=== PATIENT | female | born 1955 | race Caucasian/White ===

== ENCOUNTER 2016-08-01 11:52 | Outpatient (CLI) | payer MEDICARE, OTHER ==
[~2016-08-01] VITALS: Ht 177.8 cm; Wt 149.2 kg
[2016-08-01 12:06] VITALS: BP 140/69
[2016-08-01] MEDS ORDERED: WARF4TAB9 PO (12:17)
[2016-08-01] MEDS ORDERED: ACEB200C PO (12:55)
[2016-08-01 13:11] LABS: BASOPHILS % (AUTO) 0 % (0-10); EOSINOPHILS # (AUTO) 0.4 10^3/uL (0.0-0.3); EOSINOPHILS % (AUTO) 4 % (0-10); LYMPHOCYTES # (AUTO) 1.9 X 10^3 (1.0-4.0); LYMPHOCYTES % (AUTO) 19 % (12-44); MEAN CORPUSCULAR HEMOGLOBIN 26 PG (25-34); MEAN CORPUSCULAR HGB CONC 33 G/DL (32-36); MEAN CORPUSCULAR VOLUME 81 FL (80-99); MEAN PLATELET VOLUME 10.7 FL (7.4-10.4); MONOCYTES # (AUTO) 0.8 X 10^3 (0.0-1.0); MONOCYTES % (AUTO) 8 % (0-12); NEUTROPHILS # (AUTO) 7.2 X 10^3 (1.8-7.8); NEUTROPHILS % (AUTO) 70 % (42-75); PLATELET COUNT 225 10^3/uL (130-400); RED BLOOD COUNT 4.41 10^6/uL (4.35-5.85); RED CELL DISTRIBUTION WIDTH 14.8 % (10.0-14.5); WHITE BLOOD COUNT 10.3 10^3/uL (4.3-11.0)
[2016-08-01 13:28] LABS: ANION GAP 9 MMOL/L (5-14); BLOOD UREA NITROGEN 7 MG/DL (7-18); BUN/CREATININE RATIO 9; CALCIUM 9.4 MG/DL (8.5-10.1); CARBON DIOXIDE 28 MMOL/L (21-32); CHLORIDE 95 MMOL/L (98-107); CREATININE SERUM 0.78 MG/DL (0.60-1.30); GFR ESTIMATED > 60; GLUCOSE 121 MG/DL (70-105); POTASSIUM 4.4 MMOL/L (3.6-5.0); SODIUM 132 MMOL/L (135-145)
[2016-08-01] MEDS ORDERED: LORA-405 PO (13:34)
[2016-08-01] MEDS ORDERED: DILT360T11 PO (13:34)
[2016-08-01] MEDS ORDERED: DOXA4TAB2 PO (13:34)
[2016-08-01] MEDS ORDERED: DULO60CA58 PO (13:34)
[2016-08-01] MEDS ORDERED: TEMA30CA PO (13:34)
[2016-08-01] MEDS ORDERED: CLON0.3T PO (13:34)
[2016-08-01] MEDS ORDERED: HYDR-3820 PO (13:53)
[2016-08-01] MEDS ORDERED: LEVO75TA6 PO (13:53)
[2016-08-01] MEDS ORDERED: BUDE10.2 IH (13:53)
[2016-08-01] MEDS ORDERED: MONT10TA24 PO (13:53)
[2016-08-01] MEDS ORDERED: CARI350T PO (13:53)
[2016-08-01] MEDS ORDERED: ISOS30TA3 PO (13:53)
[2016-08-01] MEDS ORDERED: RT-ALBUINH IH (13:53)
[2016-08-01] MEDS ORDERED: FURO40TA4 PO (13:53)
[2016-08-01] MEDS ORDERED: POTA10TA10 PO (13:53)
[2016-08-01] MEDS ORDERED: FEXO180T84 PO (13:53)
[2016-08-01] MEDS ORDERED: PANT40TA2 PO (13:53)
[2016-08-01] MEDS ORDERED: LOSA25TA21 PO (13:53)
[2016-08-01] MEDS ORDERED: FLUT9.9S NSEACH (13:53)
[2016-08-01] MEDS ORDERED: GABA-490 PO (13:53)
[2016-08-01] MEDS ORDERED: INSU100V6 SQ (13:53)
[2016-08-01] MEDS ORDERED: ACLI400A2 IH (13:53)
[2016-08-01] MEDS ORDERED: INSU100V16 SQ (13:53)
[2016-08-01] MEDS ORDERED: METO-310 PO (13:53)
[2016-08-01] MEDS ORDERED: ATOR20TA66 PO (13:53)
[2016-08-01] MEDS ORDERED: GLIM4TAB PO (13:53)
== END 2016-08-01 12:30 | disposition home or self-care (01) ==
LOC: PREOP 11:52
PROVIDERS: ATTEND Orthopaedic Surgery Orthopaedic Surgery of the Spine
DX: Z01.812 Encounter for preprocedural laboratory examination (principal); Z11.2 Encounter for screening for other bacterial diseases; M50.20 Other cervical disc displacement, unspecified cervical region; I10 Essential (primary) hypertension
CPT/HCPCS: 36415; 80048; 85025; 87081

== ENCOUNTER 2016-08-07 10:21 | Inpatient (IN) | payer MEDICARE, OTHER ==
[~2016-08-07] VITALS: Ht 177.8 cm; Wt 149.2 kg
[~2016-08-07 10:21] MED LIST: ACEB200C PO; ACLI400A2 IH; ATOR20TA66 PO; BUDE10.2 IH; CARI350T PO; CLON0.3T PO; DILT360T11 PO; DOXA4TAB2 PO; DULO60CA58 PO; FEXO180T84 PO; FLUT9.9S NS; FURO40TA4 PO; GABA-490 PO; GLIM4TAB PO; HYDR-3820 PO; INSU100V16 SQ; INSU100V6 SQ; ISOS30TA3 PO; LEVO75TA6 PO; LORA-405 PO; LOSA25TA21 PO; METO-310 PO; MONT10TA24 PO; PANT40TA2 PO; POTA10TA10 PO; RT-ALBUINH IH; TEMA30CA PO; WARF4TAB9 PO
[2016-08-07] MEDS ORDERED: GENTAMICIN 40 MG/ML 2 ML INJ SDV ONE (10:40)
[2016-08-07] MEDS ORDERED: fentaNYL INJECTION 250 MCG/5 ML AMP ONE (10:44)
[2016-08-07] MEDS ORDERED: MIDAZOLAM 2 MG/2 ML (VERSED) VIAL ONE (10:44)
[2016-08-07] MEDS ORDERED: NS (IVPB) 50 ML ONE (10:44)
[2016-08-07] MEDS ORDERED: CLINDAMYCIN 600 MG/4ML (CLEOCIN) VIAL ONE (10:44)
[2016-08-07] MEDS ORDERED: MILK OF MAGNESIA 400 MG/5 ML 30 ML UDC PO PRN (10:45)
[2016-08-07] MEDS ORDERED: FAMOTIDINE 20MG/2ML IV (PEPCID) IV ONE (10:45)
[2016-08-07] MEDS ORDERED: ONDANSETRON 4 MG/2 ML (SDV) Z0FRAN IV PRN (10:45)
[2016-08-07] MEDS ORDERED: ACETAMINOPHEN 325 MG TABLET/CAPLET (TYLENOL) PO PRN (10:45)
[2016-08-07] MEDS ORDERED: DOCUSATE SODIUM 100 MG (COLACE) CAP PO PRN (10:45)
[2016-08-07] MEDS: LACTATED RINGERS 1,000 ML IV PRN ×2 (10:45→12:03)
[2016-08-07] MEDS ORDERED: ONDANSETRON 4 MG/2 ML (SDV) Z0FRAN IV ONE (10:45)
[2016-08-07] MEDS ORDERED: SUCCINYLCHOLINE INJ 100 MG/5 ML SYR ONE (10:49)
[2016-08-07 11:07] LABS: INR 1.2 (0.8-1.4); PROTHROMBIN TIME PATIENT 14.6 SEC (12.2-14.7)
[2016-08-07] MEDS ORDERED: CLINDAMYCIN INJECTION 600 MG in NS (IVPB) 50 ML IV ONE (11:15)
[2016-08-07] MEDS ORDERED: SEVOFLURANE (ULTANE) 15 ML INHAL SOLN ONE (12:31)
[2016-08-07] MEDS ORDERED: ROCURONIUM 50 MG/5 ML (ZEMURON) VIAL IV ONE (12:31)
[2016-08-07] MEDS ORDERED: DEXMEDETOMIDINE 200 MCG/2 ML (PRECEDEX) VIAL IV ONE (12:31)
[2016-08-07] MEDS ORDERED: proPOfol 200 MG/20 ML (DIPRIVAN) VIAL IV ONE ×2 (12:31→12:32)
[2016-08-07] MEDS ORDERED: LACTATED RINGERS 1,000 ML IV ONE ×2 (12:31→12:32)
[2016-08-07] MEDS ORDERED: ONDANSETRON 4 MG/2 ML (SDV) Z0FRAN ONE (12:31)
[2016-08-07] MEDS ORDERED: LIDOCAINE PF 2% 5 ML (XYLOCAINE) VIAL ONE (12:31)
--- NOTE | 2016-08-07 12:44 | Progress Note-Post Operative ---
Post-Operative Progess Note Surgeon (s)/Chainman (s) Surgeon TARYN PEGUERO MD Chainman: CHANTEL Arzola Pre-Operative Diagnosis Cervical Stenosis Post-Operative Diagnosis Same Procedure & Operative Findings Date of Procedure 08/07/16 Procedure Performed/Findings C4-7 ACDF with allo and plate. Anesthesia Type GETA Estimated Blood Loss Estimated blood loss (mL): <50 Specimens/Packing Specimens Removed None TARYN PEGUERO MD Aug 07, 2016 12:44 pm
[2016-08-07] MEDS ORDERED: morphine INJ 10 MG/ML 1ML (SYR OR VIAL) ONE (13:05)
[2016-08-07] MEDS: morphine INJ 10 MG/ML 1ML (SYR OR VIAL) IVP PRN ×6 (13:10→21:39)
[2016-08-07] MEDS ORDERED: ONDANSETRON 4 MG/2 ML (SDV) Z0FRAN IVP PRN (13:15)
[2016-08-07] MEDS ORDERED: HYDROmorphone (DILAUDID) 2 MG/ML VIAL IVP PRN (13:15)
--- NOTE | 2016-08-07 13:28 | Diagnostic Imaging Report ---
INDICATION: Neck pain. IMPRESSION: 8.5 seconds of fluoroscopy was used by Dr. Sellers during anterior cervical discectomy and fusion at C4-5, C5-6, and C6-7. The postop alignment appears normal. Dictated by: Dictated on workstation # [id number]
[2016-08-07 13:50] VITALS: BP 149/77
[2016-08-07] MEDS: NS IV 1000 ML 1,000 ML IV SCH ×2 (14:40→18:27)
[2016-08-07] MEDS ORDERED: CATHETER FLUSH 10 ML SYR IV PRN (14:45)
[2016-08-07] MEDS ORDERED: TEMA15CA PO (15:30)
[2016-08-07] MEDS ORDERED: INSU100I10 SC (15:30)
[2016-08-07] MEDS ORDERED: INSU100I14 SC (15:30)
[2016-08-07] MEDS ORDERED: DILT300C PO (15:30)
[2016-08-07] MEDS ORDERED: MULT-878 PO (15:32)
[2016-08-07 16:45] VITALS: BP 183/97
[2016-08-07] MEDS: BACLOFEN 10 MG (LIORESAL) TAB PO PRN (16:59)
[2016-08-07] MEDS: HYDROcodone/APAP 5 MG/325 MG (LORTAB) TAB PO PRN (18:11)
[2016-08-07] MEDS: CLINDAMYCIN INJECTION 600 MG in NS (IVPB) 50 ML IV SCH (18:53)
[2016-08-07 19:15] VITALS: BP 191/96
[2016-08-07] MEDS ORDERED: TEMAZEPAM 15 MG (RESTORIL) CAP PO PRN (20:30)
[2016-08-07] MEDS ORDERED: NON-FORMULARY MEDICATION 1 EA EA (Temazepam 30 MG) PO PRN (20:30)
[2016-08-07] MEDS: cloNIDine 0.1 MG (CATAPRES) TAB PO SCH (20:45)
[2016-08-07] MEDS: ISOSORBIDE MONONITRATE 30 MG (IMDUR) TAB PO SCH (20:46)
[2016-08-07] MEDS: DILTIAZEM 300 MG (CARDIZEM CD) CAP PO SCH (20:46)
[2016-08-07] MEDS: LOSARTAN 25 MG (COZAAR) TAB PO SCH (20:46)
[2016-08-07] MEDS ORDERED: DULoxetine 30 MG (CYMBALTA) CAP ONE (20:47)
[2016-08-07] MEDS ORDERED: NON-FORMULARY MEDICATION 1 EA EA (Insulin Glargine,Hum.rec.anlog (Lantus Solostar) 50 UNIT SC SCH (21:00)
[2016-08-07] MEDS ORDERED: NON-FORMULARY MEDICATION 1 EA EA (Insulin Aspart (Novolog Flexpen) 20 UNITS) SC SCH (21:00)
[2016-08-07] MEDS ORDERED: CLONIDINE HCL 0.3 MG PO SCH (21:00)
[2016-08-07] MEDS ORDERED: ACEBUTOLOL HCL 200 MG PO SCH (21:00)
[2016-08-07] MEDS ORDERED: NON-FORMULARY MEDICATION 1 EA EA (Duloxetine HCl 60 MG) PO SCH (21:00)
[2016-08-07] MEDS: inSUlin DETERMIR 1 UNIT/0.01 ML (LEVEMIR) CHARGE PER UNIT SQ SCH (21:38)
[2016-08-07] MEDS: inSUlin ASPART (NovoLOG) 1 UNIT/0.01 ML (CHARGE PER UNIT) SC SCH (21:39)
[2016-08-07 23:50] VITALS: BP 165/75
[2016-08-08] MEDS: HYDROcodone/APAP 5 MG/325 MG (LORTAB) TAB PO PRN ×3 (00:10→10:05)
[2016-08-08] MEDS: CLINDAMYCIN INJECTION 600 MG in NS (IVPB) 50 ML IV SCH ×2 (02:11→10:13)
[2016-08-08 03:45] VITALS: BP 174/80
[2016-08-08] MEDS: NS IV 1000 ML 1,000 ML IV SCH ×2 (04:08→13:04)
--- NOTE | 2016-08-08 05:13 | OPERATIVE REPORT ---
DATE OF SERVICE: 08/07/2016 PREOPERATIVE DIAGNOSES: 1. Cervical stenosis. 2. Cervical spondylosis. 3. Cervical radiculopathy. POSTOPERATIVE DIAGNOSES: 1. Cervical stenosis. 2. Cervical spondylosis. 3. Cervical radiculopathy. PROCEDURE PERFORMED: 1. C4-C5 anterior cervical discectomy and fusion. 2. C5-C6 anterior cervical discectomy and fusion. 3. C6-C7 anterior cervical discectomy and fusion. 4. C4-C5, C5-C6, and C6-C7 interbody cage instrumentation. 5. C4-C7 anterior plate instrumentation. DATE AND TIME OF SURGERY: Please see anesthesia records. IMPLANTS USED: K2M [place] interbody cages. K2M blue ridge plate and screws. K2M [place] bone graft. SURGEON: Taryn Sellers MD HAND RIGGER: JAYNE Bee. ROLE OF PHYSICIAN/ALLERGY/IMMUNOLOGY: Aid in retraction of the procedure, aid in implantation, instrumentation and wound closure. ANESTHESIA: General endotracheal. ESTIMATED BLOOD LOSS: Less than 50 mL. INTRAVENOUS FLUIDS: Please see anesthesia record. ANTIBIOTICS: Ancef. COMPLICATIONS: None. INDICATIONS FOR PROCEDURES: The patient is a 61-year-old female patient with progression to her neck pain, arm pain, weakness, failed conservative therapy and desires operative treatment. NEUROMONITORING: Standard intraoperative neuromonitoring carried out by means of real time of continuous high quality bidirectional mode, audio and visual communication to both the robotics testing technician and surgeon by Dr. Jasso SSEPS, EMGs, TCMEPs and TOFs were carried out continuously throughout the procedure and stable. DESCRIPTION OF THE PROCEDURE: The patient was taken from the preoperative holding area back to the operative suite. After adequate induction of general anesthesia, preoperative antibiotics, placed supine on the OR table. Shoulder roll was placed, head extended, sterile prep and drape to the anterior cervical spine. A standard left-sided [place] approach to the neck was carried out without difficulty. Once the appropriate levels were confirmed, Shadow-Line retractor was placed deep to longus colli for the remainder of the case. Then starting at 4-5, [place] pins placed, anterior dissection performed, disk decompression all the way down to the posterior longitudinal ligament was carried out. Bilateral foraminal decompression was assured and at this point trial spacer was utilized and the appropriate sized [place], titanium interbody cage filled with Allograft bone was impacted into position with good fit achieved. Procedure was then carried out the 5-6, and 6-7 levels. Once all 3 levels have been adequately decompressed and infused, [place] pins were removed. The anterior osteophytes taken down and the appropriate sized [place] plate was affixed to the spine with a combination of 14 to 16 mm variable angle screws locked to plate. Wound was copiously irrigated. Deep drain was placed. The wound was closed in layers. The patient was transferred to the recovery room in stable condition having tolerated the procedure well. Job ID: [id number] DocumentID: [id number] Dictated Date: 08/07/2016 12:47:44 Reel Stripper Date: 08/08/2016 01:48:41 Dictated By: TARYN SELLERS MD MTDD
--- NOTE | 2016-08-08 06:07 | Progress Note (SOAP) ---
Subjective Time Seen by Provider: 06:05 Subjective/Events-last exam Arm pain and numbness gone Some neck pain Swallowing pain Objective Exam Vital Signs Date Time Temp Pulse Resp B/P (MAP) Pulse Ox O2 Delivery O2 Flow Rate FiO2 08/08/16 03:45 98.1 94 16 174/80 91 08/07/16 23:50 96.4 97 22 165/75 91 08/07/16 19:15 99.4 94 19 191/96 92 08/07/16 16:45 97.6 83 19 183/97 92 08/07/16 13:50 96.8 61 16 149/77 91 I & O 08/08/16 07:00 Intake Total 3409 ml Output Total 3800 ml Balance -391 ml Capillary Refill : General Appearance: No Apparent Distress Neck: Non Tender, Supple Respiratory: No Accessory Muscle Use, No Respiratory Distress Cardiovascular: Regular Rate, Rhythm Extremity: Non Tender, No Calf Tenderness Neurologic/Psychiatric: Alert, Oriented x3, No Motor/Sensory Deficits, Normal Mood/Affect Results Lab Laboratory Tests 08/07/16 10:40: Prothrombin Time 14.6, INR Comment 1.2, Activated Partial Thromboplast Time 28 08/07/16 10:42: Glucometer 165H 08/07/16 13:07: Glucometer 199H 08/07/16 20:57: Glucometer 407*H 08/08/16 05:37: Glucometer 283H Assessment/Plan Assessment/Plan Assess & Plan/Chief Complaint Cervical Stenosis Cervical Spondylosis Cervical Radiculopathy Diabetes Morbid Obesity BMI>45 Mobilize today Pain control Work on Blood Sugars Likely home tomorrow Clinical Quality Measures DVT/VTE Risk/Contraindication: Risk Factor Score Per Nursin RFS Level Per Nursing on Admit: 4+=Very High TARYN PEGUERO MD Aug 08, 2016 6:07 am
[2016-08-08] MEDS: MULTIVIT W/MINERALS TAB (THERAGRAN M) PO SCH ×2 (06:36→06:37)
[2016-08-08] MEDS: inSUlin ASPART (NovoLOG) 1 UNIT/0.01 ML (CHARGE PER UNIT) SC SCH ×4 (06:36→22:31)
[2016-08-08] MEDS ORDERED: PANTOPRAZOLE 40 MG (PROTONIX) TAB PO SCH ×2 (07:00→21:00)
[2016-08-08] MEDS: morphine INJ 10 MG/ML 1ML (SYR OR VIAL) IVP PRN ×5 (07:48→22:33)
[2016-08-08] MEDS: cloNIDine 0.1 MG (CATAPRES) TAB PO SCH ×3 (07:49→22:33)
[2016-08-08] MEDS: DULoxetine 30 MG (CYMBALTA) CAP PO SCH ×2 (07:49→22:34)
[2016-08-08] MEDS: inSUlin DETERMIR 1 UNIT/0.01 ML (LEVEMIR) CHARGE PER UNIT SQ SCH ×2 (07:52→22:31)
[2016-08-08 08:00] VITALS: BP 186/100
--- NOTE | 2016-08-08 09:20 | Physical Therapy Evaluation ---
PT Evaluation-General Medical Diagnosis Admission Date Aug 07, 2016 at 10:21 Medical Diagnosis: herniated nucleus propulposus Onset Date: Aug 07, 2016 Therapy Diagnosis Therapy Diagnosis: debility/weakness Height/Weight Height (Feet): 5 Height (Inches): 10.00 Weight (Pounds): 329 Weight (Ounces): 0.0 Precautions Precautions/Isolations: Fall Prevention, Standard Precautions Referral Physician: Verito Medical History Pertinent Medical History: DM Additional Medical History left AKA (2 yrs); morbid obesity; cervical stenosis Current History s/p C4-7 ACDF with allograft and plate Reviewed History: Yes Social History Home: Single Level Current Living Status: Spouse Entry Into Home: Ramp Prior/Core FIM Prior Level of Function Functional [place] Measure 0=Not Assessed/NA 4=Minimal Assistance 1=Total Assistance 5=Supervision or Setup 2=Maximal Assistance 6=Modified [place] 3=Moderate Assistance 7=Complete [place] Bed Mobility: 6 Transfers (B,C,W/C) (FIM): 6 Gait: 0 Locomotion: 6 Wheelchair Mobility: 6 patient is nonambulatory x 2 yrs. PT Evaluation-Current Subjective Patient agrees to PT. Pain Numeric Pain Scale: 5-Moderate Pain Location: Soft Tissue Location Body Site: Neck Pain Description: Ache, Acute Pt/Family Goals return to home this week Objective Patient Orientation: Normal For Age Problem Solving: Good Attachments: Ayala Catheter, IV cervical collar ROM/Strength ROM Lower Extremities right LE WFL Strenght Lower Extremities right LE 5/5 in all planes; left AKA WFL Integumentary/Posture Integumentary refer to nursing notes Bladder Incontinence: Ayala Cath Posture WNL Neuromuscular (Tone, Coordination, Reflexes) grossly intact Sensory Vision: Functional Hearing: Functional Sensation Right Lower Extremit: Impaired Sensation Left Lower Extremity: Impaired Transfers Functional [place] Measure 0=Not Assessed/NA 4=Minimal Assistance 1=Total Assistance 5=Supervision or Setup 2=Maximal Assistance 6=Modified [place] 3=Moderate Assistance 7=Complete [place] Transfers (B, C, W/C) (FIM): 5 Scootin Rollin Supine to/from Sit: 6 Sit to/from Stand: 5 Gait Mode of Locomotion: Wheelchair Anticipated Mode of Locomotion: Wheelchair Balance Sitting Static: Normal Sitting Dynamic: Normal Standing Static: Normal Standing Dynamic: Fair Assessment/Needs 61 y.o. female, will benefit from short term skilled PT to address functional mobility to return to home with spouse. Patient has been nonambulatory x 2 yrs secondary to left AKA and has all modified equipment established. Rehab Potential: Good PT Short Term Goals Short Term Goals Time Frame: Aug 11, 2016 Transfers (B,C,W/C) (FIM): 6 PT Plan Treatment/Plan Treatment Plan: Continue Plan of Care Treatment Plan: Education, Functional Activity [place], Functional Strength, Safety, Therapeutic Exercise, Transfers Treatment Duration: Aug 11, 2016 # of days/week 4 Visits Per Week: 4-8 Pt/Family Agrees w/Plan: Yes Safety Risks/Education Patient Education: Safety Issues Teaching Recipient: Patient Teaching Methods: Discussion Response to Teaching: Verbalize Understanding Discharge Recommendations Therapy D/C Recommendations: Home w/ Family Support, Physical Therapy Outpatient Time/GCodes Time In: 840 Time Out: 900 Total Billed Treatment Time: 20 Total Billed Treatment 1 visit EVModC 20 min JOHN NAPOLES PT Aug 08, 2016 09:20
[2016-08-08 09:46] LABS: BASOPHILS % (AUTO) 0 % (0-10); EOSINOPHILS % (AUTO) 0 % (0-10); LYMPHOCYTES # (AUTO) 0.7 X 10^3 (1.0-4.0); LYMPHOCYTES % (AUTO) 6 % (12-44); MEAN CORPUSCULAR HEMOGLOBIN 26 PG (25-34); MEAN CORPUSCULAR HGB CONC 32 G/DL (32-36); MEAN CORPUSCULAR VOLUME 82 FL (80-99); MEAN PLATELET VOLUME 10.6 FL (7.4-10.4); MONOCYTES # (AUTO) 0.7 X 10^3 (0.0-1.0); MONOCYTES % (AUTO) 5 % (0-12); NEUTROPHILS # (AUTO) 11.5 X 10^3 (1.8-7.8); NEUTROPHILS % (AUTO) 89 % (42-75); PLATELET COUNT 178 10^3/uL (130-400); RED BLOOD COUNT 4.39 10^6/uL (4.35-5.85); RED CELL DISTRIBUTION WIDTH 14.9 % (10.0-14.5); WHITE BLOOD COUNT 12.9 10^3/uL (4.3-11.0)
[2016-08-08 10:04] LABS: ALANINE AMINOTRANSFERASE 10 U/L (0-55); ALBUMIN 3.8 G/DL (3.2-4.5); ANION GAP 11 MMOL/L (5-14); ASPARTATE AMINO TRANSFERASE 8 U/L (5-34); BILIRUBIN,TOTAL 0.5 MG/DL (0.1-1.0); BLOOD UREA NITROGEN 10 MG/DL (7-18); BUN/CREATININE RATIO 12; CARBON DIOXIDE 25 MMOL/L (21-32); CHLORIDE 99 MMOL/L (98-107); CREATININE SERUM 0.85 MG/DL (0.60-1.30); GFR ESTIMATED > 60; GLUCOSE 312 MG/DL (70-105); SODIUM 135 MMOL/L (135-145); TOTAL PROTEIN 6.3 G/DL (6.4-8.2)
--- NOTE | 2016-08-08 10:11 | Consultation-Hospitalist ---
HPI History of Present Illness: HPI/Chief Complaint CC: Medical management C4-7 ACDF with allo and plate POD # 1 HPI: This is a 61-year-old white female from [place] that presents following an uncomplicated cervical spine surgery per Dr. Sellers. Currently she is concerned about her home medication which I reconciled and reviewed and restarted promptly. She reports the pain medication is helping when she receives it and overall not having any shortness of breath or chest pain. She sees multiple specialists in [place] including cardiology, pulmonology, and multiple others due to multiple medical problems including lupus anticoagulant with history of blood clots in the left [id number] amputation performed [address] Worrell. At this current time I'm waiting on lab results that I ordered but her blood sugar has been in the 300 range so I restarted her home insulin regimen. At this current time I will be monitoring closely treating pain with initiating physical therapy as soon as possible to get out of bed at least but ambulation is precluded due to left [id number] amputation. Exam Limitations: no limitations Date Seen 08/08/16 Attending Physician Ger Sellers MD PCP No,Local Physician Referring Physician Date of Admission Aug 07, 2016 at 10:21 Home Medications & Allergies Home Medications Reviewed patient Home Medication Reconciliation Form Allergies Allergies Coded Allergies Penicillins (Verified Allergy, Severe, ANAPHYLAXIS, 08/07/16) adhesive tape (Verified Allergy, Unknown, HIVES, 08/01/16) Past Ujfgsyk-Nblljc-Vbwdef Hx Patient Social History Marrital Status: Employed/Student: unemployed Alcohol Use: Denies Use Recreational Drug Use: No Smoking Status: Former Smoker Physical Abuse Screen: No Sexual Abuse: No Recent Foreign Travel: No Contact w/other who traveled: No Recent Hopitalizations: No Recent Infectious Disease Expo: No Immunizations Up To Date Date of Pneumonia Vaccine: August 01, 2014 Seasonal Allergies Seasonal Allergies: Yes Surgeries HX Surgeries: Yes Surgeries: Orthopedic Respiratory Hx Respiratory Disorders: Yes Respiratory Disorders: COPD Cardiovascular Hx Cardiovascular Disorders: Yes Cardiac Disorders: Chronic Edema/Swelling, High Cholesterol, Hypertension, Peripheral Vascular Neurological Hx Neurological Disorders: Yes Neurological Disorders: Neuropathy Genitourinary Hx Genitourinary Disorders: Yes Genitourinary Disorders: Bladder Infection, Renal Failure Gastrointestinal Hx Gastrointestinal Disorders: Yes Gastrointestinal Disorders: Gastroesophageal Reflux Musculoskeletal Hx Musculoskeletal Disorders: Yes (lupus) Musculoskeletal Disorders: Arthritis, Chronic Back Pain Endocrine Hx Endocrine Disorders: Yes Endocrine Disorders: Diabetes, Insulin dep HEENT HX ENT Disorders: Yes HEENT Disorders: Cataract Hearing Impairment: Denies Cancer Hx Cancer: No Psychosocial Hx Psychiatric Problems: Yes Behavioral Health Disorders: Anxiety, Depression Family Medical History Family Hx: Abdominal aortic aneurysm 19 MOTHER Alcoholism 19 FATHER Arthritis G8 SISTER Asthma 19 FATHER Dementia 19 MOTHER Diabetes mellitus 19 FATHER Hypercholesterolemia G8 SISTER Hypertension 19 FATHER Review of Systems Date Seen by Provider: Aug 08, 2016 Time Seen by Provider: 10:00 Constitutional: see HPI EENTM: no symptoms reported Respiratory: no symptoms reported Cardiovascular: no symptoms reported Gastrointestinal: no symptoms reported Genitourinary: no symptoms reported Musculoskeletal: back pain, neck pain Skin: no symptoms reported Psychiatric/Neurological: Depressed All Other Systems Reviewed Negative Unless Noted: Yes Physical Exam Physical Exam Vital Signs Vital Sign - Last 12Hours 08/07/16 13:50 Temp 96.8 Pulse 61 Resp 16 B/P (MAP) 149/77 Pulse Ox 91 Capillary Refill : General Appearance: No Apparent Distress, WD/WN, Chronically ill, Obese Eyes: Bilateral Eye Normal Inspection, Bilateral Eye PERRL HEENT: PERRL/EOMI, Normal ENT Inspection, Pharynx Normal Neck: Full Range of Motion, Normal Inspection, Non Tender, Supple, Carotid Bruit Respiratory: Chest Non Tender, Lungs Clear, No Accessory Muscle Use, No Respiratory Distress, Decreased Breath Sounds Cardiovascular: Regular Rate, Rhythm, No Edema, No Gallop, No JVD, No Murmur, Normal Peripheral Pulses Gastrointestinal: Normal Bowel Sounds, No Organomegaly, No Pulsatile Mass, Non Tender, Soft Back: Decreased Range of Motion, Vertebral Tenderness Extremity: Normal Capillary Refill, Normal Inspection, Normal Range of Motion, Non Tender, No Calf Tenderness, No Pedal Edema Neurologic/Psychiatric: Alert, Oriented x3, No Motor/Sensory Deficits, Normal Mood/Affect Skin: Normal Color, Warm/Dry Lymphatic: No Adenopathy Results Results/Procedures Lab Laboratory Tests 08/08/16 09:39 Assessment/Plan Admission Diagnosis Assessment: Status post cervical spine surgery uncomplicated POD # 1 History of COPD Lupus anticoagulant with history of DVTs in the past maintained on warfarin Diabetes mellitus out of control Peripheral vascular disease Left pcjhq-xjp-dalu amputation [address] Worrell Hypertension Hyperlipidemia Assessment and Plan Plan: Monitor pain Reconcile all home meds Restart insulin regimen Monitor O2 saturations DVT prophylaxis per orthopedic surgery but high risk for hematoma if anticoagulation initiated to early Monitor closely Clinical Quality Measures DVT/VTE Risk/Contraindication: Risk Factor Score Per Nursin RFS Level Per Nursing on Admit: 4+=Very High LAVELL PINTO DO Aug 08, 2016 10:11
[2016-08-08 10:13] LABS: BAND NEUTROPHILS 1 %; BASOPHILS % (MANUAL) 0 %; EOSINOPHILS % (MANUAL) 0 %; LYMPHOCYTES % (MANUAL) 7 %; NEUTROPHILS % (MANUAL) 86 %
[2016-08-08 10:14] LABS: ANISOCYTOSIS SLIGHT
[2016-08-08] MEDS ORDERED: PATIENT MAY USE OWN MED,SINGLE MED PO SCH (10:15)
[2016-08-08] MEDS ORDERED: amLODIPine 5 MG (NORVASC) TAB PO NR (10:33)
--- NOTE | 2016-08-08 10:40 | Occupational Therapy Eval ---
OT Evaluation-General/PLF Medical Diagnosis Admission Date Aug 07, 2016 at 10:21 Medical Diagnosis: herniated nucleus propulposus Onset Date: Aug 07, 2016 Therapy Diagnosis Therapy Diagnosis: decreased self care Height/Weight Height (Feet): 5 Height (Inches): 10.00 Weight (Pounds): 329 Weight (Ounces): 0.0 Precautions Precautions/Isolations: Fall Prevention, Standard Precautions Referral Physician: Verito Referral Reason: Evaluation/Treatment Medical History Pertinent Medical History: DM Additional Medical History Morbid obesity, L AKA 2 years ago. Has been non-ambulatory for two years. Current History Cervical stenosis, cervical spondylosis, cervical radiculopathy. C4-C7 ADCF on Reviewed History: Yes Social History Home: Single Level Current Living Status: Spouse Entry Into Home: Ramp ADL-Prior Level of Function ADL PLOF Comments Pt reported she has been able to manage all of her basic ADLs prior to surgery. She dresses in bed but said she is able to stand with FWW to pull pants up and down. She uses a BSC because she is not able to access her toilet from the w/c at this time. Has a transfer tub bench and grab bars and is able to bathe herself. She does not drive. She is disabled. DME/Equipment: Bath Bench, Bedside Commode, Grab Bars, Tub/Shower Occupation: disabled Drive Self: No OT Current Status Subjective Pt seen in room, up in bed, agreeable to OT. Pt rated neck pain 8/10 but said she has had some meds recently for it. Did not describe Appearance Alert, cooperative Mental Status/Objective Attachments: Drains, [place] Catheter, Other-See Comments (cervical collar) Current Hand Dominance: Right Upper Extremity ROM Grossly WFL bilat Upper Extremity Strength Grossly WFL bilat Pt reported she has been going to therapy twice a week to increase her arm strength because she is planing on getting fitted for her LE prosthesis after her neck heals and she is preparing for walking. ADL-Treatment ADL-Current She was able to get out of bed with PT and walk a few steps. Still has ogden so hasn't been up to toilet. Functional [place] Measure 0=Not Assessed/NA 4=Minimal Assistance 1=Total Assistance 5=Supervision or Setup 2=Maximal Assistance 6=Modified [place] 3=Moderate Assistance 7=Complete IndependenceIRFPAI Quality Coding Scale 6 Independent with activity with or without an assistive device 5 Patient requires set up or clean up by helper. Patient completes activity by themselves 4 Supervision or touching assist (CGA). [place] provide cues , steadying assist 3 The helper provides less than half the effort to complete the activity 2 The helper provides more than half the effort to complete the activity 1 Dependent. The helper does all the effort to complete an activity 7 Patient refused to complete or attempt activity 9 The patient did not perform the activity before the current illness or injury 88 Not attempted due to Medical conditions or safety concerns Education OT Patient Education: Purpose of tx/functional activities, Rehab process Teaching Recipient: Patient Teaching Methods: Discussion Response to Teaching: Verbalize Understanding OT Short Term Goals Short Term Goals Transfers (B,C,W/C) (FIM): 6 OT Custodial Goals Doubler Operator Goals Time Frame: Aug 11, 2016 Grooming(FIM): 5 Bathing(FIM): 5 Upper Body Dressing(FIM): 5 Lower Body Dressing(FIM): 5 Toileting(FIM): 5 Toilet/Commode Transfer(FIM): 5 Additional Goals: 1-Demonstrate ADL Tasks, 2-Verbalize Understanding 1=Demonstrate adherence to instructed precautions during ADL tasks. 2=Patient will verbalize/demonstrate understanding of assistive devices/ modifications for ADL. 3=Patient will improve strength/tolerance for activity to enable patient to perform ADL's. OT Education/Plan Problem List/Assessment Assessment: Dependent Transfers (decreased), Impaired Self-Care Skills Pt would benefit from skilled OT to increase her independence in basic self care to allow her to safely return to her home to live with and to decrease caregiver burden Discharge Recommendations Plan/Recommendations: Continue POC Treatment Plan/Plan of Care Treatment,Training & Education: Yes Patient would benefit from OT for education, treatment and training to promote independence in ADL's, mobility, safety and/or upper extremity function for ADL' s. Plan of Care: ADL Retraining Comment Pt thinks she may be discharged to home tomorrow Treatment Duration: Aug 11, 2016 # of days/week 4 Visits Per Week: 4 Agreement: Yes Rehab Potential: Good Time/GCodes Start Time: 10:15 Stop Time: 10:30 Total Time Billed (hr/min): 15 Billed Treatment Time visit, 15 minutes evaluation low intensity VICENTA TRINH OT Aug 08, 2016 10:40
[2016-08-08] MEDS ORDERED: TEMAZEPAM 15 MG (RESTORIL) CAP PO PRN (11:00)
[2016-08-08] MEDS ORDERED: RT-ALBUTEROL SULF 2.5 MG/3 ML PRE-MIX VIAL IH PRN (11:00)
[2016-08-08] MEDS: LORazepam 1 MG (ATIVAN) TAB PO SCH ×2 (11:08→22:33)
[2016-08-08] MEDS: CARISOPRODOL 350 MG (SOMA) TAB PO SCH ×3 (11:09→22:34)
[2016-08-08] MEDS: METOCLOPRAMIDE 10 MG (REGLAN) TAB PO SCH ×3 (11:09→22:35)
[2016-08-08] MEDS: GABAPENTIN 400 MG (NEURONTIN) CAP PO SCH ×2 (11:09→22:34)
--- NOTE | 2016-08-08 11:13 | Anesthesia-General Post-Op ---
General Patient Condition Mental Status/LOC: Same as Preop Cardiovascular: Satisfactory Nausea/Vomiting: Absent Respiratory: Satisfactory Pain: Controlled Complications: Absent Post Op Complications Complications None Follow Up Care/Instructions Patient Instructions None needed. Anesthesia/Patient Condition Patient Condition Patient is doing well, no complaints, stable vital signs, no apparent adverse anesthesia problems. No complications reported per nursing. D/C home per [facility] Criteria: JOSH Velasquez DO Aug 08, 2016 11:13
[2016-08-08] MEDS: ACEBUTOLOL HCL 200 MG PO SCH ×2 (11:14→22:36)
[2016-08-08 12:00] VITALS: BP 139/75
[2016-08-08] MEDS ORDERED: doxAzosin 4 MG (CARDURA) TAB PO SCH (13:00)
--- NOTE | 2016-08-08 13:05 | Diagnostic Imaging Report ---
EXAMINATION: Two views of the cervical spine. INDICATION: Post fusion evaluation. FINDINGS: There is anterior discectomy and fusion involving C4-5, C5-6, and C6-7. Satisfactory alignment is seen. IMPRESSION: Baseline post anterior fusion of C4 through C7 in good alignment. Dictated by: Dictated on workstation # [id number]
[2016-08-08] MEDS: HYDROcodone/APAP 10 MG/325 MG (LORTAB) TAB PO PRN (15:59)
[2016-08-08 16:00] VITALS: BP 144/76
[2016-08-08 20:00] VITALS: BP 141/82
[2016-08-08] MEDS ORDERED: MONTELUKAST 10 MG (SINGULAIR) TAB PO SCH (21:00)
[2016-08-08] MEDS ORDERED: ATORVASTATIN 20 MG (LIPITOR) TABLET PO SCH (21:00)
[2016-08-08] MEDS: RT-ADVAIR HFA 115/21 MCG PER PUFF IH SCH (21:03)
[2016-08-08] MEDS: ISOSORBIDE MONONITRATE 30 MG (IMDUR) TAB PO SCH (22:33)
[2016-08-08] MEDS: LOSARTAN 25 MG (COZAAR) TAB PO SCH (22:33)
[2016-08-08] MEDS: DILTIAZEM 300 MG (CARDIZEM CD) CAP PO SCH (22:33)
[2016-08-08] MEDS: KCL 10 MEQ TAB (MICRO K) PO SCH (22:34)
[2016-08-08 23:50] VITALS: BP 129/72
[2016-08-09] MEDS: NS IV 1000 ML 1,000 ML IV SCH (00:32)
[2016-08-09] MEDS: morphine INJ 10 MG/ML 1ML (SYR OR VIAL) IVP PRN ×3 (00:32→06:03)
[2016-08-09 03:30] VITALS: BP 127/71
[2016-08-09] MEDS ORDERED: HYDR-3820 PO (05:16)
--- NOTE | 2016-08-09 05:22 | Discharge Summary ---
Diagnosis/Chief Complaint Date of Admission Aug 07, 2016 at 10:21 Date of Discharge Discharge Date: Aug 09, 2016 Admission Diagnosis Admission Diagnosis Cervical stenosis Cervical radiculopathy Chronic opioid use Discharge Diagnosis Cervical stenosis Cervical radiculopathy Chronic opioid use Morbid obesity Type 2 diabetes Hypothyroidism Reason Hospital Visit Cervical stenosis Discharge Summary Hospital Course Hospital Course Patient was brought to [facility] for scheduled surgical intervention. Patient underwent C4-7 ACDF, without complication. Her hospital course was uneventful. She progressed with PT and had good pain control at time of discharge. Labs Laboratory Tests 08/07/16 10:40: 08/07/16 10:42: Glucometer 165H 08/07/16 13:07: Glucometer 199H 08/07/16 20:57: Glucometer 407*H 08/08/16 05:37: Glucometer 283H 08/08/16 09:39: White Blood Count 12.9H, Red Cell Distribution Width 14.9H, Mean Platelet Volume 10.6H, Neutrophils (%) (Auto) 89H, Lymphocytes (%) (Auto) 6L, Neutrophils # (Auto) 11.5H, Lymphocytes # (Auto) 0.7L, Glucose Level 312H, Total Protein 6.3L 08/08/16 11:00: Glucometer 250H 08/08/16 15:37: Glucometer 168H 08/08/16 20:48: Glucometer 203H Procedures C4-[address] Jean-Baptiste Discharge Physical Examination Allergies: Coded Allergies: Penicillins (Verified Allergy, Severe, ANAPHYLAXIS, 08/07/16) adhesive tape (Verified Allergy, Unknown, HIVES, 08/01/16) Vitals & I&Os Vital Signs Date Time Temp Pulse Resp B/P (MAP) Pulse Ox O2 Delivery O2 Flow Rate FiO2 08/09/16 03:30 97.8 72 16 127/71 97 Discharge Home Medications Reviewed and agree with Discharge Medication list on patient's Discharge Instruction sheet Instructions to Patient/Family Please see electonic discharge instructions given to patient. Clinical Quality Measures DVT/VTE Risk/Contraindication: Risk Factor Score Per Nursin RFS Level Per Nursing on Admit: 4+=Very High TONI YUNG Aug 09, 2016 05:22
[2016-08-09 08:00] VITALS: BP 150/76
[2016-08-09] MEDS ORDERED: UMECLIDINIUM BROMIDE (INCRUSE ELLIPTA) 7'S IH SCH (08:00)
[2016-08-09] MEDS: RT-ADVAIR HFA 115/21 MCG PER PUFF IH SCH (08:00)
[2016-08-09] MEDS: ACEBUTOLOL HCL 200 MG PO SCH (08:48)
[2016-08-09] MEDS: CARISOPRODOL 350 MG (SOMA) TAB PO SCH (08:49)
[2016-08-09] MEDS: BACLOFEN 10 MG (LIORESAL) TAB PO PRN (08:49)
[2016-08-09] MEDS: KCL 10 MEQ TAB (MICRO K) PO SCH (08:49)
[2016-08-09] MEDS: cloNIDine 0.1 MG (CATAPRES) TAB PO SCH (08:49)
[2016-08-09] MEDS: DULoxetine 30 MG (CYMBALTA) CAP PO SCH (08:49)
[2016-08-09] MEDS: MULTIVIT W/MINERALS TAB (THERAGRAN M) PO SCH (08:50)
[2016-08-09] MEDS: LORazepam 1 MG (ATIVAN) TAB PO SCH (08:50)
[2016-08-09] MEDS: METOCLOPRAMIDE 10 MG (REGLAN) TAB PO SCH (08:50)
[2016-08-09] MEDS: HYDROcodone/APAP 10 MG/325 MG (LORTAB) TAB PO PRN (08:50)
[2016-08-09] MEDS: GABAPENTIN 400 MG (NEURONTIN) CAP PO SCH (08:50)
[2016-08-09] MEDS: inSUlin DETERMIR 1 UNIT/0.01 ML (LEVEMIR) CHARGE PER UNIT SQ SCH (08:51)
[2016-08-09] MEDS: inSUlin ASPART (NovoLOG) 1 UNIT/0.01 ML (CHARGE PER UNIT) SC SCH (08:52)
[2016-08-09] MEDS ORDERED: LEVOTHYROXINE 75 MCG (LEVOTHROID) TABLET PO SCH (09:00)
[2016-08-09] MEDS ORDERED: FLUTICASONE NASAL SPRAY (FLONASE) 16 GM BTL NS SCH (09:00)
[2016-08-09] MEDS ORDERED: GLIMEPIRIDE 4 MG (AMARYL) TAB PO SCH (09:00)
[2016-08-09] MEDS ORDERED: GINKGO PO SCH (09:00)
[2016-08-09] MEDS ORDERED: LORATADINE (CLARITIN) 10 MG TAB PO SCH (09:00)
[2016-08-09] MEDS ORDERED: MULTIVITAMINS MIN PO SCH (09:00)
[2016-08-09] MEDS ORDERED: [UNRECOGNIZED DRUG - OTHER] PO SCH (09:00)
[2016-08-09] MEDS ORDERED: FUROSEMIDE 40 MG (LASIX) TAB PO SCH (09:00)
[2016-08-09 10:48] VITALS: BP 150/76
--- NOTE | 2016-08-09 11:54 | Physical Therapy Daily Note ---
PT Daily Note-Current Subjective Pt. up EOB sitting , explains that she is leaving in next few mins. Introduces her and shares her history and states she just took pain meds . Pain is 3/10 in neck at this time Pain Numeric Pain Scale: 3 Location: Medial Location Body Site: Neck Pain Description: Throbbing Appearance up, dressed sitting EOB with near by Mental Status Patient Orientation: Normal For Age Transfers Functional [place] Measure 0=Not Assessed/NA 4=Minimal Assistance 1=Total Assistance 5=Supervision or Setup 2=Maximal Assistance 6=Modified [place] 3=Moderate Assistance 7=Complete IndependenceIRFPAI Quality Coding Scale 6 Independent with activity with or without an assistive device 5 Patient requires set up or clean up by helper. Patient completes activity by themselves 4 Supervision or touching assist (CGA). [place] provide cues , steadying assist 3 The helper provides less than half the effort to complete the activity 2 The helper provides more than half the effort to complete the activity 1 Dependent. The helper does all the effort to complete an activity 7 Patient refused to complete or attempt activity 9 The patient did not perform the activity before the current illness or injury 88 Not attempted due to Medical conditions or safety concerns sup top sit mod I. Pt. declines sit to stands or TRF to w/c at this time. Assures this INSURANCE SERVICE REPRESENTATIVE she can do it all herself Treatments Discussed pts home situation: present and commits to caregiver status and states she uses ramp and manages w/c indep. pt. demonstrates indep in doffing donning neck brace Assessment Current Status: Excellent Progress pt. to DC , w/c level home with caregiver PT Short Term Goals Short Term Goals Time Frame: Aug 11, 2016 Transfers (B,C,W/C) (FIM): 6 PT Plan Treatment/Plan Treatment Plan: Continue Plan of Care Treatment Plan: Education, Functional Activity Lat[place], Functional Strength, Safety, Therapeutic Exercise, Transfers Treatment Duration: Aug 11, 2016 Visits Per Week: 4-8 Time/GCodes Time In: 1050 Time Out: 1100 Total Billed Treatment Time: 10 Total Billed Treatment 1,educ 1:1 G Codes Necessary: No SHYAM ARMANDO INSURANCE SERVICE REPRESENTATIVE Aug 09, 2016 11:54
== END 2016-08-09 11:15 | disposition home or self-care (01) | DRG 472 ==
LOC: 4TH 10:21 → SURG 10:22 → EDSTATUS 12:00 → 4TH 13:59
PROVIDERS: ADMIT Orthopaedic Surgery Orthopaedic Surgery of the Spine; ATTEND Orthopaedic Surgery Orthopaedic Surgery of the Spine
PROC: 0RG20A0 Fusion of 2 or more Cervical Vertebral Joints with Interbody Fusion Device, Anterior Approach, Anterior Column, Open Approach (ICD-10-PCS; principal; 2016-08-07 11:08)
DX: M48.02 Spinal stenosis, cervical region (principal); M47.9 Spondylosis, unspecified; M54.12 Radiculopathy, cervical region; D68.62 Lupus anticoagulant syndrome; E66.01 Morbid (severe) obesity due to excess calories; Z68.42 Body mass index [BMI] 45.0-49.9, adult; E11.40 Type 2 diabetes mellitus with diabetic neuropathy, unspecified; E11.51 Type 2 diabetes mellitus with diabetic peripheral angiopathy without gangrene; I10 Essential (primary) hypertension; J44.9 Chronic obstructive pulmonary disease, unspecified; J30.2 Other seasonal allergic rhinitis; E78.00 Pure hypercholesterolemia, unspecified; K21.9 Gastro-esophageal reflux disease without esophagitis; M19.91 Primary osteoarthritis, unspecified site; F41.9 Anxiety disorder, unspecified; F32.9 Major depressive disorder, single episode, unspecified; Z79.4 Long term (current) use of insulin; Z87.891 Personal history of nicotine dependence; Z86.718 Personal history of other venous thrombosis and embolism; Z89.612 Acquired absence of left leg above knee
CPT/HCPCS: 36415; 72040; 80053; 82962; 85007; 85027; 85610; 85730; 86850; 86900; 86901; 94664